=== PATIENT | male | born 2000 | race African-American/Black ===

== ENCOUNTER 2022-03-25 07:56 | Inpatient (IN) | payer SELFPAY ==
[2022-03-25] MEDS ORDERED: Piperacillin/Tazobactam 3.375 GM VIAL ONE (08:01)
[2022-03-25] MEDS ORDERED: FENTANYL 50 MCG/ML 1 ML VIAL ONE ×2 (08:02→13:10)
[2022-03-25] MEDS ORDERED: fentaNYL PF 100 MCG/2 ML SYRINGE ONE (08:19)
[2022-03-25] MEDS ORDERED: SUGAMMADEX SODIUM 200 MG/2 ML VIAL ONE (08:19)
[2022-03-25] MEDS ORDERED: Famotidine/PF 20 mg/2ml Vial ONE (08:19)
[2022-03-25] MEDS ORDERED: Ondansetron PF 4 MG/2 ML Vial ONE (08:22)
[2022-03-25] MEDS ORDERED: PROPOFOL 200 MG/20 ML VIAL ONE (08:22)
[2022-03-25] MEDS ORDERED: Rocuronium Bromide 10 MG/ML (10ML VIAL) ONE (08:22)
[2022-03-25] MEDS ORDERED: Succinylcholine 200 MG/10 ml SYRINGE FS ONE (08:22)
[2022-03-25] MEDS ORDERED: Phenylephrine 10 MG/ML VIAL ONE (08:22)
[2022-03-25] MEDS ORDERED: Dexamethasone 20 MG/5 ML VIAL ONE (08:22)
[2022-03-25] MEDS ORDERED: Ketorolac Tromethamine 30 MG/ML VIAL ONE (08:22)
[2022-03-25 08:23] LABS: Bacteria/HPF None Seen HPF (None Seen); Bilirubin Negative (Negative); Blood, Urine 3+ (Negative); Clarity Clear (Clear); Glucose, Urine (Dipstick) 150 mg/dL (Negative); Ketone, Urine Negative (Negative); Leukocyte 25 Leu/uL (Negative); Nitrite Negative (Negative); Protein, Urine (Dipstick) 30 mg/dL (Neg-Trace); RBC/HPF Greater than 50 HPF (0-3); Specific Gravity, Urine 1.048 (1.002-1.036); Squamous Epithelial None Seen HPF (0-3); Urobilinogen Normal mg/dL (Less than 2); WBC/HPF 0-3 HPF (0-3); pH, Urine 5.5 (5.0-9.0)
[2022-03-25 08:26] LABS: Hemoglobin 14.2 g/dL (14.0-18.0); Mean Corpuscular Hemoglobin 33.2 pg (27.0-31.0); Mean Corpuscular Volume 94.8 fl (78.0-98.0); Mean Platelet Volume 8.9 fL (7.4-10.4); Platelet Count 148 10x3/uL (130-400); Red Blood Cell (RBC) Count 4.28 mill/uL (4.70-6.10); White Blood Cell (WBC) Count 23.6 10x3/uL (4.8-10.8)
[2022-03-25 08:29] LABS: Amphetamine Not Detected (NotDetected); Barbiturates Screen Not Detected (NotDetected); Benzodiazepine Screen Not Detected (NotDetected); Cocaine Metabolite Screen Not Detected (NotDetected); Methadone Not Detected (NotDetected); Methamphetamine Not Detected (NotDetected); Opiate Screen Detected (NotDetected); Oxycodone Screen Not Detected (NotDetected); Phencyclidine (PCP) Not Detected (NotDetected); THC/Cannabinoid Screen Detected (NotDetected); Tricyclic Screen Not Detected (NotDetected)
[2022-03-25 08:38] LABS: Alcohol Less than 10 mg/dL (Less than 10); Lipase 13 U/L (8-78)
[2022-03-25 08:40] LABS: Acetaminophen Less than 10.0 mcg/mL (10.0-30.0); Alcohol Less than 10 mg/dL (Less than 10); Salicylate Less than 8.0 mg/dL (15.0-30.0)
[2022-03-25 08:43] LABS: INR-International Normal Ratio 1.3; Prothrombin Time 17.2 sec (12.0-14.7)
[2022-03-25 08:52] LABS: Band 7 % (5-11); Lymphocytes 12 % (21-51); MDiff Complete? YES; Monocytes 8 % (0-10); Neutrophil 73 % (42-75); Platelet Morphology Comment Appears Adequate; RBC Morphology Normal
[2022-03-25] MEDS ORDERED: Propofol 500 MG/50 ML VIAL ONE (10:15)
[2022-03-25] MEDS ORDERED: Iopamidol 370 76% 100 ML VIAL ONE (11:18)
[2022-03-25] MEDS ORDERED: Meperidine HCl/PF 25 MG/ML VIAL ONE (11:30)
[2022-03-25] MEDS ORDERED: PACU-Morphine 4MG/ML VIAL SLOW IVP PRN (11:37)
[2022-03-25] MEDS ORDERED: Promethazine HCl 25 MG/ML VIAL IVPB PRN (11:37)
[2022-03-25] MEDS ORDERED: Ondansetron HCl/PF 4 MG/2 ML Vial IVP PRN (11:37)
[2022-03-25] MEDS ORDERED: Promethazine HCl 25 MG/ML VIAL IM PRN ×2 (11:37→13:05)
[2022-03-25] MEDS ORDERED: Lidocaine 1% (PF) 30 ML VIAL ONE (11:41)
[2022-03-25] MEDS ORDERED: Fentanyl 100 MCG/2 ML VIAL ONE (12:05)
[2022-03-25] MEDS ORDERED: Midazolam HCl 2 mg/2 ml Vial ONE (12:05)
[2022-03-25 12:31] LABS: Lactic Acid 5.1 mmol/L (0.5-2.2)
[2022-03-25] MEDS ORDERED: hydrALAZINE 20 MG/ML VIAL SLOW IVP PRN (13:00)
[2022-03-25] MEDS ORDERED: TETANUS, DIPHTHERIA TOX,ADULT (TDVAX) 0.5 ML VIAL IM ONE (13:00)
[2022-03-25] MEDS ORDERED: Dextrose 5% in Water 1,000 ML IV PRN (13:00)
[2022-03-25] MEDS ORDERED: Insulin Regular 300 UNITS/3 ML VIAL SC PRN (13:00)
[2022-03-25] MEDS ORDERED: Dextrose 50% Abboject 50 ML SYRINGE SLOW IVP PRN (13:00)
[2022-03-25] MEDS ORDERED: Naloxone HCl 0.4 mg/ml Vial IV PRN (13:05)
[2022-03-25] MEDS ORDERED: diphenhydrAMINE 25 MG CAP PO PRN (13:05)
[2022-03-25] MEDS ORDERED: diphenhydrAMINE 50 MG/ML VIAL IM PRN (13:05)
[2022-03-25] MEDS ORDERED: diphenhydrAMINE 50 MG/ML VIAL IVP PRN (13:05)
[2022-03-25] MEDS ORDERED: Communication Order-Pharmacy FS SCH (13:15)
[2022-03-25 14:19] LABS: Hemoglobin 14.8 g/dL (14.0-18.0); Mean Corpuscular HGB CONC 33.6 g/dL (32.0-36.0); Mean Corpuscular Hemoglobin 31.6 pg (27.0-31.0); Mean Corpuscular Volume 94.1 fl (78.0-98.0); Mean Platelet Volume 8.4 fL (7.4-10.4); Platelet Count 131 10x3/uL (130-400); RBC Distribution Width 13.8 % (11.5-14.5); Red Blood Cell (RBC) Count 4.69 mill/uL (4.70-6.10); White Blood Cell (WBC) Count 19.9 10x3/uL (4.8-10.8)
[2022-03-25 14:29] LABS: INR-International Normal Ratio 1.5; PTT 33.4 sec (22.9-36.1); Prothrombin Time 18.6 sec (12.0-14.7)
[2022-03-25 14:40] LABS: Phosphorus 4.3 mg/dL (2.3-4.7)
[2022-03-25 14:45] LABS: ALT (SGPT) 20 U/L (8-55); AST (SGOT) 28 U/L (5-34); Albumin 2.8 g/dL (3.5-5.0); Alkaline Phosphatase 39 U/L (40-110); Anion Gap 18 mmol/L (10-20); BUN (Urea Nitrogen) 8 mg/dL (8.9-20.6); Bilirubin, Total 1.5 mg/dL (0.2-1.2); Calc. Creatinine Clearance 0 mL/min (70-130); Calcium 7.3 mg/dL (7.8-10.44); Carbon Dioxide 15 mmol/L (22-29); Chloride 111 mmol/L (98-107); Estimated GFR 96; Globulin 1.9 g/dL (2.4-3.5); Glucose 228 mg/dL (70-105); Magnesium 1.5 mg/dL (1.6-2.6); Potassium 3.8 mmol/L (3.5-5.1); Protein, Total 4.7 g/dL (6.0-8.3); Sodium 140 mmol/L (136-145)
[2022-03-25 15:03] LABS: Band 42 % (5-11); Lymphocytes 2 % (21-51); MDiff Complete? YES; Metamyelocyte 3 % (0-0); Monocytes 10 % (0-10); Neutrophil 43 % (42-75); Platelet Morphology Comment Appears Adequate; RBC Morphology Normal; Vacuoles SLIGHT
[2022-03-25] MEDS ORDERED: Potassium Chloride 20 MEQ in Premix Bag 1 BAG IVPB SCH (15:45)
[2022-03-25] MEDS ORDERED: Magnesium Sulfate In Water 4 GM in Premix Bag 1 BAG IVPB SCH (15:45)
[2022-03-25] MEDS ORDERED: Magnesium 2 GM/50 ML(in water) 4 GM in Premix Bag 1 BAG IVPB SCH (15:45)
[2022-03-25 17:00] VITALS: BMI 21.7
[2022-03-25] MEDS: Sodium Chloride 0.9% 1,000 ML IV SCH ×2 (17:29→22:46)
[2022-03-25 18:14] LABS: Lactic Acid 3.6 mmol/L (0.5-2.2)
[2022-03-25] MEDS: Piperacillin/Tazobactam 3.375 GM in Sodium Chloride 0.9% 100 ML IVPB SCH ×2 (18:24→23:37)
[2022-03-25] MEDS: Ondansetron PF 4 MG/2 ML Vial IVP PRN (18:24)
[2022-03-25] MEDS ORDERED: Lactated Ringer's 1,000 ML IV SCH (18:30)
[2022-03-25 19:49] LABS: #Lymphocytes 0.5 thou/uL (1.20-3.40); #Monocytes 1.8 thou/uL (0.11-0.59); #Neutrophils 11.9 thou/uL (1.40-6.50); %Basophils 0.1 % (0.0-1.0); %Eosinophils 0.1 % (0.0-10.0); %Lymphocytes 3.2 % (21.0-51.0); %Monocytes 12.7 % (0.0-10.0); %Neutrophils 83.9 % (42.0-75.0); Hemoglobin 14.4 g/dL (14.0-18.0); Mean Corpuscular HGB CONC 33.7 g/dL (32.0-36.0); Mean Corpuscular Hemoglobin 31.3 pg (27.0-31.0); Mean Corpuscular Volume 92.7 fl (78.0-98.0); Mean Platelet Volume 8.1 fL (7.4-10.4); Platelet Count 125 10x3/uL (130-400); RBC Distribution Width 14.2 % (11.5-14.5); Red Blood Cell (RBC) Count 4.59 mill/uL (4.70-6.10); White Blood Cell (WBC) Count 14.2 10x3/uL (4.8-10.8)
[2022-03-25 20:00] LABS: INR-International Normal Ratio 1.3; PTT 27.5 sec (22.9-36.1); Prothrombin Time 16.5 sec (12.0-14.7)
[2022-03-25 20:08] LABS: Lactic Acid 4.2 mmol/L (0.5-2.2)
[2022-03-25 20:22] LABS: Anion Gap 15 mmol/L (10-20); BUN (Urea Nitrogen) 10 mg/dL (8.9-20.6); Calc. Creatinine Clearance 95 mL/min (70-130); Calcium 7.8 mg/dL (7.8-10.44); Carbon Dioxide 16 mmol/L (22-29); Chloride 113 mmol/L (98-107); Estimated GFR 84; Glucose 168 mg/dL (70-105); Potassium 5.5 mmol/L (3.5-5.1); Sodium 138 mmol/L (136-145)
[2022-03-25] MEDS: Famotidine/PF 20 mg/2ml Vial SLOW IVP SCH (20:44)
[2022-03-25 22:57] LABS: #Lymphocytes 0.4 thou/uL (1.20-3.40); #Monocytes 1.7 thou/uL (0.11-0.59); #Neutrophils 10.2 thou/uL (1.40-6.50); %Eosinophils 0.1 % (0.0-10.0); %Lymphocytes 3.5 % (21.0-51.0); %Neutrophils 82.4 % (42.0-75.0); Hemoglobin 13.7 g/dL (14.0-18.0); Mean Corpuscular Hemoglobin 31.4 pg (27.0-31.0); Mean Corpuscular Volume 92.2 fl (78.0-98.0); Mean Platelet Volume 8.3 fL (7.4-10.4); Platelet Count 120 10x3/uL (130-400); RBC Distribution Width 14.1 % (11.5-14.5); Red Blood Cell (RBC) Count 4.37 mill/uL (4.70-6.10); White Blood Cell (WBC) Count 12.4 10x3/uL (4.8-10.8)
[2022-03-26] MEDS ORDERED: Sodium Chloride 0.9% 1,000 ML IV SCH (01:15)
[2022-03-26] MEDS: Ondansetron PF 4 MG/2 ML Vial IVP PRN ×2 (03:21→19:57)
[2022-03-26] MEDS: Sodium Chloride 0.9% 1,000 ML IV SCH ×3 (03:48→14:08)
[2022-03-26 04:36] LABS: Lactic Acid 2.4 mmol/L (0.5-2.2)
[2022-03-26 04:38] LABS: INR-International Normal Ratio 1.4; PTT 32.8 sec (22.9-36.1); Prothrombin Time 18.2 sec (12.0-14.7)
[2022-03-26] MEDS ORDERED: Dextrose 50% Abboject 50 ML SYRINGE SLOW IVP SCH (04:45)
[2022-03-26] MEDS ORDERED: Insulin Regular 300 UNITS/3 ML VIAL IVP SCH (04:45)
[2022-03-26 04:52] LABS: Anion Gap 12 mmol/L (10-20); BUN (Urea Nitrogen) 14 mg/dL (8.9-20.6); Calc. Creatinine Clearance 80 mL/min (70-130); Calcium 7.9 mg/dL (7.8-10.44); Carbon Dioxide 21 mmol/L (22-29); Chloride 112 mmol/L (98-107); Estimated GFR 68; Glucose 115 mg/dL (70-105); Magnesium 2.3 mg/dL (1.6-2.6); Phosphorus 2.9 mg/dL (2.3-4.7); Potassium 5.3 mmol/L (3.5-5.1); Sodium 140 mmol/L (136-145)
[2022-03-26] MEDS ORDERED: Calcium Chloride 13.6 MEQ in Sodium Chloride 0.9% 100 ML IVPB SCH ×2 (05:00→08:00)
[2022-03-26 05:14] LABS: Band 23 % (5-11); Lymphocytes 4 % (21-51); MDiff Complete? YES; Mean Corpuscular HGB CONC 33.3 g/dL (32.0-36.0); Mean Corpuscular Hemoglobin 31.1 pg (27.0-31.0); Mean Corpuscular Volume 93.5 fl (78.0-98.0); Mean Platelet Volume 7.9 fL (7.4-10.4); Monocytes 15 % (0-10); Neutrophil 58 % (42-75); Platelet Count 112 10x3/uL (130-400); Platelet Morphology Comment Appears Decreased; RBC Distribution Width 13.7 % (11.5-14.5); Red Blood Cell (RBC) Count 3.52 mill/uL (4.70-6.10); White Blood Cell (WBC) Count 10.1 10x3/uL (4.8-10.8)
[2022-03-26] MEDS: Piperacillin/Tazobactam 3.375 GM in Sodium Chloride 0.9% 100 ML IVPB SCH ×3 (05:39→21:26)
[2022-03-26] MEDS: Famotidine/PF 20 mg/2ml Vial SLOW IVP SCH ×2 (08:27→19:57)
[2022-03-26 08:52] LABS: SARS-CoV-2 NAA Rapid Test Not Detected (NotDetected)
[2022-03-26 10:18] LABS: #Lymphocytes 0.7 thou/uL (1.20-3.40); #Monocytes 1.5 thou/uL (0.11-0.59); #Neutrophils 8.3 thou/uL (1.40-6.50); %Basophils 0.2 % (0.0-1.0); %Eosinophils 0.2 % (0.0-10.0); %Lymphocytes 6.2 % (21.0-51.0); %Monocytes 14.1 % (0.0-10.0); %Neutrophils 79.4 % (42.0-75.0); Hemoglobin 10.7 g/dL (14.0-18.0); Mean Corpuscular HGB CONC 33.7 g/dL (32.0-36.0); Mean Corpuscular Hemoglobin 31.8 pg (27.0-31.0); Mean Corpuscular Volume 94.3 fl (78.0-98.0); Mean Platelet Volume 8.1 fL (7.4-10.4); Platelet Count 99 10x3/uL (130-400); RBC Distribution Width 13.7 % (11.5-14.5); Red Blood Cell (RBC) Count 3.36 mill/uL (4.70-6.10); White Blood Cell (WBC) Count 10.5 10x3/uL (4.8-10.8)
[2022-03-26] MEDS ORDERED: Sodium Phosphate 15 MMOL in Sodium Chloride 0.9% 250 ML 250 ML IVPB SCH (12:00)
[2022-03-26 17:27] LABS: Magnesium 1.9 mg/dL (1.6-2.6); Phosphorus 3.2 mg/dL (2.3-4.7)
[2022-03-27] MEDS: Sodium Chloride 0.9% 1,000 ML IV SCH ×3 (00:55→16:16)
[2022-03-27] MEDS: Piperacillin/Tazobactam 3.375 GM in Sodium Chloride 0.9% 100 ML IVPB SCH ×3 (04:59→21:59)
[2022-03-27] MEDS: Famotidine/PF 20 mg/2ml Vial SLOW IVP SCH ×2 (09:08→21:58)
[2022-03-27 11:07] LABS: #Lymphocytes 0.6 thou/uL (1.20-3.40); #Monocytes 1.1 thou/uL (0.11-0.59); #Neutrophils 8.3 thou/uL (1.40-6.50); %Eosinophils 0.2 % (0.0-10.0); %Lymphocytes 5.5 % (21.0-51.0); %Monocytes 10.6 % (0.0-10.0); %Neutrophils 83.7 % (42.0-75.0); Hemoglobin 9.2 g/dL (14.0-18.0); Mean Corpuscular HGB CONC 34.8 g/dL (32.0-36.0); Mean Corpuscular Hemoglobin 32.3 pg (27.0-31.0); Mean Corpuscular Volume 92.8 fl (78.0-98.0); Mean Platelet Volume 7.7 fL (7.4-10.4); Platelet Count 115 10x3/uL (130-400); RBC Distribution Width 13.4 % (11.5-14.5); Red Blood Cell (RBC) Count 2.84 mill/uL (4.70-6.10); White Blood Cell (WBC) Count 9.9 10x3/uL (4.8-10.8)
[2022-03-27 11:25] LABS: ALT (SGPT) 22 U/L (8-55); AST (SGOT) 50 U/L (5-34); Albumin 2.9 g/dL (3.5-5.0); Alkaline Phosphatase 39 U/L (40-110); Anion Gap 10 mmol/L (10-20); BUN (Urea Nitrogen) 13 mg/dL (8.9-20.6); Bilirubin, Total 1.9 mg/dL (0.2-1.2); Calc. Creatinine Clearance 103 mL/min (70-130); Calcium 8.6 mg/dL (7.8-10.44); Carbon Dioxide 25 mmol/L (22-29); Chloride 110 mmol/L (98-107); Estimated GFR 91; Globulin 2.4 g/dL (2.4-3.5); Glucose 92 mg/dL (70-105); Potassium 4.4 mmol/L (3.5-5.1); Protein, Total 5.3 g/dL (6.0-8.3); Sodium 141 mmol/L (136-145)
[2022-03-27] MEDS: Ondansetron PF 4 MG/2 ML Vial IVP PRN (16:13)
[2022-03-27] MEDS: Enoxaparin Sodium 40 MG/0.4 ML SYRINGE SC SCH (21:59)
[2022-03-28] MEDS: Sodium Chloride 0.9% 1,000 ML IV SCH ×2 (00:30→08:03)
[2022-03-28] MEDS: HYDROmorphone 10 mg/100 ml CADD IVPB PRN (02:53)
[2022-03-28] MEDS: Piperacillin/Tazobactam 3.375 GM in Sodium Chloride 0.9% 100 ML IVPB SCH ×3 (06:04→20:51)
[2022-03-28 07:06] LABS: #Lymphocytes 1.1 thou/uL (1.20-3.40); #Monocytes 0.9 thou/uL (0.11-0.59); #Neutrophils 7.3 thou/uL (1.40-6.50); %Eosinophils 0.4 % (0.0-10.0); %Lymphocytes 11.4 % (21.0-51.0); %Monocytes 9.8 % (0.0-10.0); %Neutrophils 78.4 % (42.0-75.0); Hemoglobin 9.1 g/dL (14.0-18.0); Mean Corpuscular HGB CONC 35.5 g/dL (32.0-36.0); Mean Corpuscular Hemoglobin 33.1 pg (27.0-31.0); Mean Corpuscular Volume 93.4 fl (78.0-98.0); Mean Platelet Volume 7.5 fL (7.4-10.4); Platelet Count 127 10x3/uL (130-400); RBC Distribution Width 13.3 % (11.5-14.5); Red Blood Cell (RBC) Count 2.75 mill/uL (4.70-6.10); White Blood Cell (WBC) Count 9.3 10x3/uL (4.8-10.8)
[2022-03-28 07:16] LABS: Anion Gap 10 mmol/L (10-20); BUN (Urea Nitrogen) 10 mg/dL (8.9-20.6); Calc. Creatinine Clearance 140 mL/min (70-130); Calcium 8.4 mg/dL (7.8-10.44); Carbon Dioxide 25 mmol/L (22-29); Chloride 108 mmol/L (98-107); Estimated GFR 126; Glucose 78 mg/dL (70-105); Magnesium 1.7 mg/dL (1.6-2.6); Phosphorus 2.7 mg/dL (2.3-4.7); Potassium 3.8 mmol/L (3.5-5.1); Sodium 139 mmol/L (136-145)
[2022-03-28] MEDS: Famotidine/PF 20 mg/2ml Vial SLOW IVP SCH ×2 (08:03→20:51)
[2022-03-28] MEDS ORDERED: Magnesium 2 GM/50 ML(in water) 2 GM in Premix Bag 1 BAG IVPB SCH (08:15)
[2022-03-28] MEDS ORDERED: Potassium Phosphate 30 MMOL, Magnesium Sulfate 2 GM in Sodium Chloride 0.9% 250 ML 250 ML IVPB SCH (09:00)
[2022-03-28] MEDS ORDERED: Iopamidol 370 76% 100 ML VIAL ONE (09:18)
[2022-03-28] MEDS: Enoxaparin Sodium 40 MG/0.4 ML SYRINGE SC SCH (20:51)
[2022-03-29] MEDS: Sodium Chloride 0.9% 1,000 ML IV SCH ×2 (01:05→15:22)
[2022-03-29 05:54] LABS: #Eosinphils 0.1 thou/uL (0.0-0.7); #Lymphocytes 1.2 thou/uL (1.20-3.40); #Monocytes 0.9 thou/uL (0.11-0.59); #Neutrophils 6.6 thou/uL (1.40-6.50); %Eosinophils 1.2 % (0.0-10.0); %Lymphocytes 13.9 % (21.0-51.0); %Monocytes 9.8 % (0.0-10.0); Hemoglobin 8.3 g/dL (14.0-18.0); Mean Corpuscular HGB CONC 33.7 g/dL (32.0-36.0); Mean Corpuscular Hemoglobin 31.3 pg (27.0-31.0); Mean Corpuscular Volume 92.8 fl (78.0-98.0); Platelet Count 140 10x3/uL (130-400); RBC Distribution Width 13.5 % (11.5-14.5); Red Blood Cell (RBC) Count 2.64 mill/uL (4.70-6.10); White Blood Cell (WBC) Count 8.8 10x3/uL (4.8-10.8)
[2022-03-29 06:16] LABS: ALT (SGPT) 20 U/L (8-55); AST (SGOT) 31 U/L (5-34); Albumin 2.9 g/dL (3.5-5.0); Alkaline Phosphatase 36 U/L (40-110); Anion Gap 11 mmol/L (10-20); BUN (Urea Nitrogen) 9 mg/dL (8.9-20.6); Bilirubin, Total 1.7 mg/dL (0.2-1.2); Calc. Creatinine Clearance 137 mL/min (70-130); Calcium 8.2 mg/dL (7.8-10.44); Carbon Dioxide 24 mmol/L (22-29); Chloride 105 mmol/L (98-107); Estimated GFR 125; Globulin 2.3 g/dL (2.4-3.5); Glucose 74 mg/dL (70-105); Magnesium 1.8 mg/dL (1.6-2.6); Phosphorus 2.8 mg/dL (2.3-4.7); Potassium 3.7 mmol/L (3.5-5.1); Protein, Total 5.2 g/dL (6.0-8.3); Sodium 136 mmol/L (136-145)
[2022-03-29] MEDS: Piperacillin/Tazobactam 3.375 GM in Sodium Chloride 0.9% 100 ML IVPB SCH ×3 (06:18→22:22)
[2022-03-29] MEDS: Famotidine/PF 20 mg/2ml Vial SLOW IVP SCH ×2 (09:06→20:29)
[2022-03-29] MEDS ORDERED: fentaNYL PF 100 MCG/2 ML SYRINGE ONE (10:54)
[2022-03-29] MEDS ORDERED: Ondansetron HCl/PF 4 MG/2 ML Vial IVP PRN (11:14)
[2022-03-29] MEDS ORDERED: Promethazine HCl 25 MG/ML VIAL IM PRN (11:14)
[2022-03-29] MEDS ORDERED: Promethazine HCl 25 MG/ML VIAL IVPB PRN (11:14)
[2022-03-29] MEDS ORDERED: Iopamidol 15 ML ONE ×2 (11:34→13:37)
[2022-03-29] MEDS ORDERED: PROPOFOL 200 MG/20 ML VIAL ONE (12:48)
[2022-03-29] MEDS ORDERED: Ondansetron PF 4 MG/2 ML Vial ONE (12:48)
[2022-03-29] MEDS ORDERED: Dexamethasone 20 MG/5 ML VIAL ONE (12:48)
[2022-03-29] MEDS: Senokot S 8.6-50 MG TAB PO SCH (20:29)
[2022-03-30] MEDS: Piperacillin/Tazobactam 3.375 GM in Sodium Chloride 0.9% 100 ML IVPB SCH ×2 (05:36→15:15)
[2022-03-30] MEDS: HYDROmorphone 10 mg/100 ml CADD IVPB PRN (05:37)
[2022-03-30 05:40] LABS: #Lymphocytes 0.6 thou/uL (1.20-3.40); #Monocytes 1.3 thou/uL (0.11-0.59); #Neutrophils 7.8 thou/uL (1.40-6.50); %Eosinophils 0.1 % (0.0-10.0); %Lymphocytes 6.5 % (21.0-51.0); %Monocytes 13.3 % (0.0-10.0); Hemoglobin 8.1 g/dL (14.0-18.0); Mean Corpuscular HGB CONC 33.9 g/dL (32.0-36.0); Mean Corpuscular Hemoglobin 31.3 pg (27.0-31.0); Mean Corpuscular Volume 92.3 fl (78.0-98.0); Mean Platelet Volume 6.6 fL (7.4-10.4); Platelet Count 148 10x3/uL (130-400); RBC Distribution Width 14.4 % (11.5-14.5); Red Blood Cell (RBC) Count 2.58 mill/uL (4.70-6.10); White Blood Cell (WBC) Count 9.8 10x3/uL (4.8-10.8)
[2022-03-30 05:56] LABS: Anion Gap 11 mmol/L (10-20); BUN (Urea Nitrogen) 9 mg/dL (8.9-20.6); Calc. Creatinine Clearance 137 mL/min (70-130); Calcium 8.5 mg/dL (7.8-10.44); Carbon Dioxide 24 mmol/L (22-29); Chloride 106 mmol/L (98-107); Estimated GFR 125; Glucose 104 mg/dL (70-105); Magnesium 1.7 mg/dL (1.6-2.6); Phosphorus 3.3 mg/dL (2.3-4.7); Sodium 137 mmol/L (136-145)
[2022-03-30] MEDS ORDERED: FENTANYL 50 MCG/ML 1 ML VIAL ONE (09:28)
[2022-03-30] MEDS ORDERED: Sodium Bicarbonate 2.5 MEQ/5 ML VIAL ONE (09:58)
[2022-03-30] MEDS ORDERED: Lidocaine 2% PF 5 ML VIAL ONE (09:58)
[2022-03-30] MEDS: Polyethylene Glycol 3350 17 GM Packet PO SCH (11:27)
[2022-03-30] MEDS: Senokot S 8.6-50 MG TAB PO SCH ×2 (11:27→20:24)
[2022-03-30] MEDS: Famotidine/PF 20 mg/2ml Vial SLOW IVP SCH ×2 (12:14→20:24)
[2022-03-31] MEDS: Polyethylene Glycol 3350 17 GM Packet PO SCH (08:05)
[2022-03-31] MEDS: Senokot S 8.6-50 MG TAB PO SCH (08:05)
[2022-03-31] MEDS: Famotidine/PF 20 mg/2ml Vial SLOW IVP SCH (08:05)
[2022-03-31 08:13] VITALS: TEMP 98.2
[2022-03-31] MEDS ORDERED: Enoxaparin Sodium 40 MG/0.4 ML SYRINGE SC SCH (09:00)
[2022-03-31] MEDS ORDERED: Sodium Chloride 0.9% 1,000 ML IV SCH (11:00)
[2022-03-31 12:05] VITALS: BP 125/71
== END 2022-03-31 12:50 | disposition short-term general hospital (02) | DRG 957 ==
LOC: ERS 07:56 → SDC 08:14 → SURG A 13:16 → EEVIPCON 13:16
PROVIDERS: ADMIT Surgery; ATTEND Surgery
PROC: 0DB80ZZ Excision of Small Intestine, Open Approach (ICD-10-PCS; principal; 2022-03-25)
PROC: 04LF3DZ Occlusion of Left Internal Iliac Artery with Intraluminal Device, Percutaneous Approach (ICD-10-PCS; 2022-03-25)
PROC: 0DBN0ZZ Excision of Sigmoid Colon, Open Approach (ICD-10-PCS; 2022-03-25)
PROC: B4101ZZ Fluoroscopy of Abdominal Aorta using Low Osmolar Contrast (ICD-10-PCS; 2022-03-25)
PROC: B41G1ZZ Fluoroscopy of Left Lower Extremity Arteries using Low Osmolar Contrast (ICD-10-PCS; 2022-03-25)
PROC: 30233M1 Transfusion of Nonautologous Plasma Cryoprecipitate into Peripheral Vein, Percutaneous Approach (ICD-10-PCS; 2022-03-25)
PROC: 30233N1 Transfusion of Nonautologous Red Blood Cells into Peripheral Vein, Percutaneous Approach (ICD-10-PCS; 2022-03-25)
PROC: 0TJB8ZZ Inspection of Bladder, Via Natural or Artificial Opening Endoscopic (ICD-10-PCS; 2022-03-29)
PROC: BT1F1ZZ Fluoroscopy of Left Kidney, Ureter and Bladder using Low Osmolar Contrast (ICD-10-PCS; 2022-03-30)
DX: S36.498A Other injury of other part of small intestine, initial encounter (principal); Z20.822 Contact with and (suspected) exposure to COVID-19; K65.8 Other peritonitis; S37.29XA Other injury of bladder, initial encounter; S35.512A Injury of left iliac artery, initial encounter; S36.892A Contusion of other intra-abdominal organs, initial encounter; S36.593A Other injury of sigmoid colon, initial encounter; R18.8 Other ascites; N17.9 Acute kidney failure, unspecified; M62.82 Rhabdomyolysis; S31.134A Puncture wound of abdominal wall without foreign body, left lower quadrant without penetration into peritoneal cavity, initial encounter; S31.030A Puncture wound without foreign body of lower back and pelvis without penetration into retroperitoneum, initial encounter; X95.9XXA Assault by unspecified firearm discharge, initial encounter
CPT/HCPCS: 36246; 36415; 36416; 36430; 37244; 50433; 51702; 72191; 74178; 74410; 74420; 75726; 80048; 80053; 80306; 80307; 81003; 81015; 82570; 83605; 83690; 83735; 84100; 85025; 85384; 85610; 85730; 86850; 86900; 86901; 88307; 96374; 96375; A4649; C1713; C1760; C1769; C1776; C1894; G0390; J1100; J1650; J1815; J1885; J2001; J2175; J2250; J2370; J2405; J2543; J2704; J3010; J3475; J3480; J3490; J7050; P9012; P9016; Q9967; S0028; U0002

== ENCOUNTER 2022-04-10 14:12 | Inpatient (IN) | payer OTHER, BC ==
[~2022-04-10 14:12] MED LIST: Iopamidol-370 76% 500 ML 1 ML ONE
[2022-04-10 15:46] LABS: #Eosinphils 0.1 thou/uL (0.0-0.7); #Lymphocytes 0.7 thou/uL (1.20-3.40); #Monocytes 2.1 thou/uL (0.11-0.59); #Neutrophils 13.8 thou/uL (1.40-6.50); %Basophils 0.1 % (0.0-1.0); %Eosinophils 0.5 % (0.0-10.0); %Lymphocytes 4.4 % (21.0-51.0); %Monocytes 12.6 % (0.0-10.0); %Neutrophils 82.4 % (42.0-75.0); Mean Corpuscular HGB CONC 32.6 g/dL (32.0-36.0); Mean Corpuscular Hemoglobin 30.7 pg (27.0-31.0); Mean Corpuscular Volume 94.4 fl (78.0-98.0); Platelet Count 464 10x3/uL (130-400); RBC Distribution Width 14.6 % (11.5-14.5); Red Blood Cell (RBC) Count 3.89 mill/uL (4.70-6.10); White Blood Cell (WBC) Count 16.8 10x3/uL (4.8-10.8)
[2022-04-10 16:08] LABS: ALT (SGPT) 27 U/L (8-55); AST (SGOT) 21 U/L (5-34); Albumin 3.6 g/dL (3.5-5.0); Alkaline Phosphatase 66 U/L (40-110); Anion Gap 16 mmol/L (10-20); BUN (Urea Nitrogen) 7 mg/dL (8.9-20.6); Bilirubin, Total 1.3 mg/dL (0.2-1.2); Calc. Creatinine Clearance 0 mL/min (70-130); Calcium 9.1 mg/dL (7.8-10.44); Carbon Dioxide 23 mmol/L (22-29); Chloride 103 mmol/L (98-107); Estimated GFR 127; Glucose 85 mg/dL (70-105); Magnesium 1.8 mg/dL (1.6-2.6); Potassium 4.5 mmol/L (3.5-5.1); Protein, Total 6.6 g/dL (6.0-8.3); Sodium 137 mmol/L (136-145)
[2022-04-10 16:17] LABS: Bilirubin Negative (Negative); Blood, Urine Negative (Negative); Clarity Clear (Clear); Glucose, Urine (Dipstick) Normal (Negative); Ketone, Urine Negative (Negative); Leukocyte 25 Leu/uL (Negative); Nitrite Negative (Negative); Protein, Urine (Dipstick) 20 mg/dL (Neg-Trace); Specific Gravity, Urine 1.026 (1.002-1.036); Urobilinogen 3 mg/dL (Less than 2); pH, Urine 5.5 (5.0-9.0)
[2022-04-10 16:28] LABS: Amphetamine Not Detected (NotDetected); Barbiturates Screen Not Detected (NotDetected); Benzodiazepine Screen Not Detected (NotDetected); Cocaine Metabolite Screen Not Detected (NotDetected); Methadone Not Detected (NotDetected); Methamphetamine Not Detected (NotDetected); Opiate Screen Not Detected (NotDetected); Oxycodone Screen Not Detected (NotDetected); Phencyclidine (PCP) Not Detected (NotDetected); THC/Cannabinoid Screen Detected (NotDetected); Tricyclic Screen Not Detected (NotDetected)
[2022-04-10 16:37] LABS: CK (CPK) 180 U/L (30-200); Lipase 9 U/L (8-78)
[2022-04-10 16:39] LABS: Bacteria/HPF None Seen HPF (None Seen); RBC/HPF None Seen HPF (0-3); Squamous Epithelial 0-3 HPF (0-3)
[2022-04-10] MEDS ORDERED: Piperacillin/Tazobactam 3.375 GM VIAL ONE (18:21)
[2022-04-10] MEDS ORDERED: Ondansetron PF 4 MG/2 ML Vial IVP PRN (20:08)
[2022-04-10] MEDS ORDERED: Dextrose 5% in Water 1,000 ML IV PRN (20:08)
[2022-04-10] MEDS ORDERED: Ondansetron ODT 4 MG TAB PO PRN (20:08)
[2022-04-10] MEDS ORDERED: Morphine 4 MG/ML VIAL SLOW IVP PRN ×2 (20:08→20:21)
[2022-04-10] MEDS ORDERED: traMADol HCl 50 MG TAB PO PRN ×2 (20:08)
[2022-04-10] MEDS ORDERED: Dextrose 50% Abboject 50 ML SYRINGE SLOW IVP PRN (20:08)
[2022-04-10] MEDS ORDERED: hydrALAZINE 20 MG/ML VIAL SLOW IVP PRN (20:08)
[2022-04-10] MEDS ORDERED: Meropenem 1 GM in Sodium Chloride 0.9% 100 ML IVPB SCH (20:45)
[2022-04-10 21:20] VITALS: BMI 18.6
[2022-04-10] MEDS: Sodium Chloride 0.9% 1,000 ML IV SCH (21:34)
[2022-04-10] MEDS: Senokot S 8.6-50 MG TAB PO SCH (21:35)
[2022-04-10] MEDS: Famotidine/PF 20 mg/2ml Vial SLOW IVP SCH (21:35)
[2022-04-10] MEDS: Acetaminophen 325 MG TAB PO SCH (21:35)
[2022-04-10 22:26] LABS: SARS-CoV-2 NAA Rapid Test Not Detected (NotDetected)
[2022-04-10 23:35] LABS: Lactic Acid 1.3 mmol/L (0.5-2.2)
[2022-04-11] MEDS: Acetaminophen 325 MG TAB PO SCH ×2 (03:05→12:36)
[2022-04-11] MEDS: Sodium Chloride 0.9% 1,000 ML IV SCH (05:40)
[2022-04-11] MEDS ORDERED: Meropenem 1 GM in Sodium Chloride 0.9% 100 ML IVPB SCH (06:00)
[2022-04-11 06:48] LABS: Hemoglobin 10.1 g/dL (14.0-18.0); Mean Corpuscular HGB CONC 33.2 g/dL (32.0-36.0); Mean Corpuscular Hemoglobin 31.3 pg (27.0-31.0); Mean Corpuscular Volume 94.5 fl (78.0-98.0); Mean Platelet Volume 6.5 fL (7.4-10.4); Platelet Count 472 10x3/uL (130-400); RBC Distribution Width 14.2 % (11.5-14.5); Red Blood Cell (RBC) Count 3.22 mill/uL (4.70-6.10); White Blood Cell (WBC) Count 10.7 10x3/uL (4.8-10.8)
[2022-04-11 07:11] LABS: Anion Gap 9 mmol/L (10-20); BUN (Urea Nitrogen) 7 mg/dL (8.9-20.6); Calc. Creatinine Clearance 141 mL/min (70-130); Carbon Dioxide 27 mmol/L (22-29); Chloride 106 mmol/L (98-107); Estimated GFR 129; Glucose 90 mg/dL (70-105); Sodium 138 mmol/L (136-145)
[2022-04-11 08:36] LABS: Band 2 % (5-11); Eosinophils 2 % (0-10); Lymphocytes 12 % (21-51); MDiff Complete? YES; Monocytes 6 % (0-10); Neutrophil 78 % (42-75); Platelet Morphology Comment Appears Increased; Polychromasia SLIGHT = 2-3 cells (100X) (0-2/hpf)
[2022-04-11] MEDS ORDERED: Saccharomyces boulardii 250 MG CAP PO SCH (09:00)
[2022-04-11] MEDS ORDERED: Polyethylene Glycol 3350 17 GM Packet PO SCH (09:00)
[2022-04-11] MEDS ORDERED: Sodium Bicarbonate 2.5 MEQ/5 ML VIAL ONE (10:37)
[2022-04-11] MEDS ORDERED: FENTANYL 50 MCG/ML 1 ML VIAL ONE (10:38)
[2022-04-11] MEDS ORDERED: Midazolam HCl 2 mg/2 ml Vial ONE (10:39)
[2022-04-11] MEDS: Senokot S 8.6-50 MG TAB PO SCH (12:36)
[2022-04-11] MEDS: Famotidine/PF 20 mg/2ml Vial SLOW IVP SCH (12:36)
[2022-04-11 12:51] LABS: BF Color Brown; Body Fluid Source Abscess Fluid; Clarity Cloudy/Turbid (Clear); Tube # EDTA
[2022-04-11 16:17] VITALS: BP 126/84; TEMP 97
[2022-04-11] MEDS ORDERED: Amoxicillin/Potassium Clav 875 MG TAB PO SCH (21:00)
== END 2022-04-11 16:49 | disposition home or self-care (01) | DRG 373 ==
LOC: ERS 14:12 → SJJU 19:57
PROVIDERS: ADMIT Surgery; ATTEND Surgery
PROC: 0W9G3ZZ Drainage of Peritoneal Cavity, Percutaneous Approach (ICD-10-PCS; principal; 2022-04-11)
DX: K65.1 Peritoneal abscess (principal); Z20.822 Contact with and (suspected) exposure to COVID-19; R53.1 Weakness; Z98.890 Other specified postprocedural states; Z93.6 Other artificial openings of urinary tract status; Z90.49 Acquired absence of other specified parts of digestive tract
CPT/HCPCS: 36415; 49020; 74177; 77012; 80048; 80053; 80306; 81003; 81015; 82550; 82570; 83605; 83690; 83735; 84484; 85025; 85060; 87070; 87077; 87086; 87186; 87205; 89051; 93005; 96361; 96365; C1729; J2185; J2250; J2543; J3010; J3490; J7050; Q9967; S0028; U0002

== ENCOUNTER 2022-04-21 14:38 | Inpatient (IN) | payer BC, OTHER ==
[2022-04-21] MEDS ORDERED: Iopamidol-370 76% 500 ML 1 ML ONE (15:14)
[2022-04-21 15:51] LABS: #Eosinphils 0.1 thou/uL (0.0-0.7); #Lymphocytes 0.8 thou/uL (1.20-3.40); #Monocytes 1.4 thou/uL (0.11-0.59); #Neutrophils 9.5 thou/uL (1.40-6.50); %Basophils 0.3 % (0.0-1.0); %Eosinophils 0.8 % (0.0-10.0); %Lymphocytes 6.8 % (21.0-51.0); %Monocytes 12.1 % (0.0-10.0); %Neutrophils 80.1 % (42.0-75.0); Mean Corpuscular HGB CONC 33.4 g/dL (32.0-36.0); Mean Corpuscular Hemoglobin 29.7 pg (27.0-31.0); Mean Corpuscular Volume 88.9 fl (78.0-98.0); Mean Platelet Volume 6.6 fL (7.4-10.4); Platelet Count 315 10x3/uL (130-400); RBC Distribution Width 14.9 % (11.5-14.5); White Blood Cell (WBC) Count 11.9 10x3/uL (4.8-10.8)
[2022-04-21 16:12] LABS: ALT (SGPT) 33 U/L (8-55); AST (SGOT) 20 U/L (5-34); Albumin 3.4 g/dL (3.5-5.0); Alkaline Phosphatase 86 U/L (40-110); Anion Gap 10 mmol/L (10-20); BUN (Urea Nitrogen) 8 mg/dL (8.9-20.6); Calc. Creatinine Clearance 0 mL/min (70-130); Calcium 8.9 mg/dL (7.8-10.44); Carbon Dioxide 27 mmol/L (22-29); Chloride 103 mmol/L (98-107); Estimated GFR 128; Globulin 3.5 g/dL (2.4-3.5); Glucose 86 mg/dL (70-105); Potassium 4.2 mmol/L (3.5-5.1); Protein, Total 6.9 g/dL (6.0-8.3); Sodium 136 mmol/L (136-145)
[2022-04-21] MEDS ORDERED: cefTRIAXone\\ROCEPHIN 2 GM VIAL ONE (16:13)
[2022-04-21 16:25] LABS: Clarity Turbid (Clear); Leukocyte Moderate (Negative); Nitrite Positive (Negative); Protein, Urine (Dipstick) 300 mg/dL (Neg-Trace)
[2022-04-21 16:26] LABS: Bilirubin Small (Negative); Blood, Urine Large (Negative); Glucose, Urine (Dipstick) Negative (Negative); Ketone, Urine Trace mg/dL (Negative); Urobilinogen 0.2 mg/dL (Less than 2)
[2022-04-21 16:29] LABS: Bacteria/HPF 4+ HPF (None Seen); Squamous Epithelial 0-3 HPF (0-3); WBC/HPF Greater than 50 HPF (0-3)
[2022-04-21] MEDS ORDERED: VANCOMYCIN 1.25 GM/250 ML BAG 1.25 GM in Premix Bag 1 BAG IVPB SCH (16:30)
[2022-04-21] MEDS ORDERED: Meropenem 1 GM in Sodium Chloride 0.9% 100 ML IVPB SCH (17:00)
[2022-04-21] MEDS ORDERED: hydrALAZINE 20 MG/ML VIAL SLOW IVP PRN (17:54)
[2022-04-21] MEDS ORDERED: Dextrose 5% in Water 1,000 ML IV PRN (17:54)
[2022-04-21] MEDS ORDERED: Ondansetron ODT 4 MG TAB PO PRN (17:54)
[2022-04-21] MEDS ORDERED: Dextrose 50% Abboject 50 ML SYRINGE SLOW IVP PRN (17:54)
[2022-04-21] MEDS ORDERED: Ondansetron PF 4 MG/2 ML Vial IVP PRN (17:54)
[2022-04-21 18:17] LABS: SARS-CoV-2 NAA Rapid Test Not Detected (NotDetected)
[2022-04-21 19:32] VITALS: BMI 20.2
[2022-04-21] MEDS ORDERED: traMADol HCl 50 MG TAB PO PRN ×2 (20:16)
[2022-04-21] MEDS: traMADol HCl 50 MG TAB PO PRN (21:03)
[2022-04-21] MEDS ORDERED: Sodium Chloride 0.9% 1,000 ML IV SCH (23:55)
[2022-04-22] MEDS: Saccharomyces boulardii 250 MG CAP PO SCH (08:33)
[2022-04-22] MEDS: VANCOMYCIN 1.25 GM/250 ML BAG 1.25 GM in Premix Bag 1 BAG IVPB SCH ×2 (08:33→22:25)
[2022-04-22 09:55] LABS: #Eosinphils 0.2 thou/uL (0.0-0.7); #Lymphocytes 0.7 thou/uL (1.20-3.40); #Monocytes 1.6 thou/uL (0.11-0.59); #Neutrophils 9.8 thou/uL (1.40-6.50); %Basophils 0.1 % (0.0-1.0); %Eosinophils 1.3 % (0.0-10.0); %Lymphocytes 5.6 % (21.0-51.0); %Monocytes 12.7 % (0.0-10.0); %Neutrophils 80.2 % (42.0-75.0); Hemoglobin 10.3 g/dL (14.0-18.0); Mean Corpuscular HGB CONC 32.8 g/dL (32.0-36.0); Mean Corpuscular Hemoglobin 29.2 pg (27.0-31.0); Mean Corpuscular Volume 88.8 fl (78.0-98.0); Mean Platelet Volume 6.8 fL (7.4-10.4); Platelet Count 273 10x3/uL (130-400); RBC Distribution Width 14.8 % (11.5-14.5); Red Blood Cell (RBC) Count 3.52 mill/uL (4.70-6.10); White Blood Cell (WBC) Count 12.2 10x3/uL (4.8-10.8)
[2022-04-22 10:01] LABS: INR-International Normal Ratio 1.3; PTT 33.3 sec (22.9-36.1); Prothrombin Time 16.4 sec (12.0-14.7)
[2022-04-22] MEDS: Meropenem 1 GM in Sodium Chloride 0.9% 100 ML IVPB SCH ×3 (10:04→17:16)
[2022-04-22 10:22] LABS: Phosphorus 2.7 mg/dL (2.3-4.7)
[2022-04-22 10:25] LABS: Anion Gap 9 mmol/L (10-20); BUN (Urea Nitrogen) 6 mg/dL (8.9-20.6); Calc. Creatinine Clearance 148 mL/min (70-130); Calcium 8.8 mg/dL (7.8-10.44); Carbon Dioxide 26 mmol/L (22-29); Chloride 104 mmol/L (98-107); Estimated GFR 130; Glucose 89 mg/dL (70-105); Magnesium 1.5 mg/dL (1.6-2.6); Potassium 3.8 mmol/L (3.5-5.1); Sodium 135 mmol/L (136-145)
[2022-04-22] MEDS ORDERED: FENTANYL 50 MCG/ML 1 ML VIAL ONE (12:42)
[2022-04-22] MEDS ORDERED: Sodium Bicarbonate 2.5 MEQ/5 ML VIAL ONE (12:42)
[2022-04-22] MEDS ORDERED: Midazolam HCl 2 mg/2 ml Vial ONE (12:42)
[2022-04-22] MEDS: traMADol HCl 50 MG TAB PO PRN ×3 (12:47→22:25)
[2022-04-22 16:04] LABS: Body Fluid Source Abscess Fluid
[2022-04-22 16:05] LABS: BF Color Brown; Clarity Cloudy/Turbid (Clear); Tube # EDTA
[2022-04-22] MEDS ORDERED: Magnesium 2 GM/50 ML(in water) 3 GM in Premix Bag 1 BAG IVPB SCH (17:00)
[2022-04-22] MEDS ORDERED: Magnesium Sulfate 3 GM in Sodium Chloride 0.9% 100 ML IVPB SCH (17:00)
[2022-04-23] MEDS: Meropenem 1 GM in Sodium Chloride 0.9% 100 ML IVPB SCH ×2 (01:31→10:15)
[2022-04-23 06:08] LABS: #Eosinphils 0.3 thou/uL (0.0-0.7); #Lymphocytes 1.2 thou/uL (1.20-3.40); #Neutrophils 4.5 thou/uL (1.40-6.50); %Basophils 0.2 % (0.0-1.0); %Eosinophils 4.3 % (0.0-10.0); %Lymphocytes 16.9 % (21.0-51.0); %Monocytes 14.6 % (0.0-10.0); %Neutrophils 63.9 % (42.0-75.0); Hemoglobin 10.1 g/dL (14.0-18.0); Mean Corpuscular HGB CONC 32.8 g/dL (32.0-36.0); Mean Corpuscular Hemoglobin 29.5 pg (27.0-31.0); Mean Corpuscular Volume 89.9 fl (78.0-98.0); Platelet Count 298 10x3/uL (130-400); RBC Distribution Width 14.4 % (11.5-14.5); Red Blood Cell (RBC) Count 3.43 mill/uL (4.70-6.10); White Blood Cell (WBC) Count 7.1 10x3/uL (4.8-10.8)
[2022-04-23 06:24] LABS: Anion Gap 13 mmol/L (10-20); BUN (Urea Nitrogen) 6 mg/dL (8.9-20.6); Calc. Creatinine Clearance 160 mL/min (70-130); Calcium 8.7 mg/dL (7.8-10.44); Carbon Dioxide 23 mmol/L (22-29); Chloride 103 mmol/L (98-107); Estimated GFR 133; Glucose 83 mg/dL (70-105); Magnesium 1.9 mg/dL (1.6-2.6); Phosphorus 2.9 mg/dL (2.3-4.7); Potassium 3.8 mmol/L (3.5-5.1); Sodium 135 mmol/L (136-145)
[2022-04-23] MEDS: VANCOMYCIN 1.25 GM/250 ML BAG 1.25 GM in Premix Bag 1 BAG IVPB SCH (10:16)
[2022-04-23] MEDS: Saccharomyces boulardii 250 MG CAP PO SCH (10:16)
[2022-04-23] MEDS: cefTRIAXone\\ROCEPHIN 2 GM in Sodium Chloride 0.9% 100 ML IVPB SCH (17:18)
[2022-04-23 20:31] LABS: Vancomycin, Trough 9.9 ug/mL
[2022-04-23] MEDS: metroNIDAZOLE 500 MG in Premix Bag 1 BAG IVPB SCH (20:56)
[2022-04-23] MEDS: traMADol HCl 50 MG TAB PO PRN (21:01)
[2022-04-24] MEDS: metroNIDAZOLE 500 MG in Premix Bag 1 BAG IVPB SCH ×3 (05:25→21:27)
[2022-04-24 06:16] LABS: #Eosinphils 0.3 thou/uL (0.0-0.7); #Lymphocytes 1.3 thou/uL (1.20-3.40); #Monocytes 0.6 thou/uL (0.11-0.59); %Basophils 0.2 % (0.0-1.0); %Eosinophils 5.5 % (0.0-10.0); %Lymphocytes 25.6 % (21.0-51.0); %Monocytes 11.5 % (0.0-10.0); %Neutrophils 57.2 % (42.0-75.0); Hemoglobin 10.6 g/dL (14.0-18.0); Mean Corpuscular HGB CONC 32.9 g/dL (32.0-36.0); Mean Corpuscular Hemoglobin 29.4 pg (27.0-31.0); Mean Corpuscular Volume 89.4 fl (78.0-98.0); Platelet Count 310 10x3/uL (130-400); RBC Distribution Width 14.5 % (11.5-14.5); Red Blood Cell (RBC) Count 3.61 mill/uL (4.70-6.10); White Blood Cell (WBC) Count 5.2 10x3/uL (4.8-10.8)
[2022-04-24 06:39] LABS: Anion Gap 13 mmol/L (10-20); BUN (Urea Nitrogen) 5 mg/dL (8.9-20.6); Calc. Creatinine Clearance 135 mL/min (70-130); Calcium 9.2 mg/dL (7.8-10.44); Carbon Dioxide 27 mmol/L (22-29); Chloride 105 mmol/L (98-107); Estimated GFR 126; Glucose 85 mg/dL (70-105); Magnesium 1.8 mg/dL (1.6-2.6); Potassium 3.7 mmol/L (3.5-5.1); Sodium 141 mmol/L (136-145)
[2022-04-24 06:46] LABS: Phosphorus 3.6 mg/dL (2.3-4.7)
[2022-04-24] MEDS: Saccharomyces boulardii 250 MG CAP PO SCH (09:50)
[2022-04-24] MEDS: traMADol HCl 50 MG TAB PO PRN ×2 (14:23→21:30)
[2022-04-24] MEDS: cefTRIAXone\\ROCEPHIN 2 GM in Sodium Chloride 0.9% 100 ML IVPB SCH (17:25)
[2022-04-25] MEDS: metroNIDAZOLE 500 MG in Premix Bag 1 BAG IVPB SCH ×2 (05:02→14:46)
[2022-04-25] MEDS: traMADol HCl 50 MG TAB PO PRN (05:06)
[2022-04-25] MEDS: Saccharomyces boulardii 250 MG CAP PO SCH (08:29)
[2022-04-25 09:25] LABS: #Eosinphils 0.3 thou/uL (0.0-0.7); #Lymphocytes 1.1 thou/uL (1.20-3.40); #Monocytes 0.6 thou/uL (0.11-0.59); #Neutrophils 2.9 thou/uL (1.40-6.50); %Basophils 0.4 % (0.0-1.0); %Eosinophils 5.5 % (0.0-10.0); %Lymphocytes 22.5 % (21.0-51.0); %Monocytes 12.5 % (0.0-10.0); %Neutrophils 59.1 % (42.0-75.0); Hemoglobin 10.4 g/dL (14.0-18.0); Mean Corpuscular HGB CONC 32.3 g/dL (32.0-36.0); Mean Corpuscular Hemoglobin 28.7 pg (27.0-31.0); Mean Corpuscular Volume 88.9 fl (78.0-98.0); Platelet Count 336 10x3/uL (130-400); RBC Distribution Width 14.5 % (11.5-14.5); Red Blood Cell (RBC) Count 3.61 mill/uL (4.70-6.10)
[2022-04-25] MEDS ORDERED: metroNIDAZOLE 500 MG TAB PO SCH (15:00)
[2022-04-25 16:41] VITALS: BP 101/58; TEMP 98.1
[2022-04-25] MEDS ORDERED: Ciprofloxacin 500 MG TAB PO SCH (20:00)
[2022-04-26] MEDS ORDERED: Saccharomyces boulardii 250 MG CAP PO SCH (09:00)
== END 2022-04-25 17:07 | disposition home or self-care (01) | DRG 698 ==
LOC: ERS 14:38 → SURG A 17:54
PROVIDERS: ADMIT Surgery; ATTEND Surgery
PROC: 0T25X0Z Change Drainage Device in Kidney, External Approach (ICD-10-PCS; principal; 2022-04-21)
PROC: 0W9J3ZZ Drainage of Pelvic Cavity, Percutaneous Approach (ICD-10-PCS; 2022-04-21)
DX: N99.521 Infection of incontinent external stoma of urinary tract (principal); K65.1 Peritoneal abscess; L02.31 Cutaneous abscess of buttock; N12 Tubulo-interstitial nephritis, not specified as acute or chronic; N36.8 Other specified disorders of urethra; Z20.822 Contact with and (suspected) exposure to COVID-19; B96.20 Unspecified Escherichia coli [E. coli] as the cause of diseases classified elsewhere; Y84.6 Urinary catheterization as the cause of abnormal reaction of the patient, or of later complication, without mention of misadventure at the time of the procedure; Z79.899 Other long term (current) drug therapy
CPT/HCPCS: 36415; 74177; 75984; 77002; 80048; 80053; 80202; 81003; 81015; 83605; 83735; 84100; 85025; 85060; 85610; 85730; 87040; 87070; 87077; 87086; 87186; 87205; 89051; 96365; 96375; C1729; J0696; J2185; J2250; J3010; J3370; J3475; J3490; J7050; Q9967; U0002

== ENCOUNTER 2022-05-31 09:19 | Emergency (ER) | payer BC, OTHER, SELFPAY ==
[2022-05-31] MEDS ORDERED: Iopamidol-370 76% 500 ML 1 ML ONE (09:22)
[2022-05-31] MEDS ORDERED: Iopamidol 300 61% 50 ML VIAL FS ONE (09:49)
[2022-05-31 10:28] LABS: #Eosinphils 0.2 thou/uL (0.0-0.7); #Lymphocytes 1.2 thou/uL (1.20-3.40); #Monocytes 0.9 thou/uL (0.11-0.59); #Neutrophils 4.5 thou/uL (1.40-6.50); %Basophils 0.2 % (0.0-1.0); %Eosinophils 2.4 % (0.0-10.0); %Lymphocytes 17.5 % (21.0-51.0); %Monocytes 13.5 % (0.0-10.0); %Neutrophils 66.4 % (42.0-75.0); Hemoglobin 14.9 g/dL (14.0-18.0); Mean Corpuscular HGB CONC 33.5 g/dL (32.0-36.0); Mean Corpuscular Hemoglobin 28.6 pg (27.0-31.0); Mean Corpuscular Volume 85.3 fl (78.0-98.0); Mean Platelet Volume 7.5 fL (7.4-10.4); Platelet Count 227 10x3/uL (130-400); RBC Distribution Width 15.3 % (11.5-14.5); White Blood Cell (WBC) Count 6.8 10x3/uL (4.8-10.8)
[2022-05-31] MEDS ORDERED: HYDROcodone/Acetaminophen 10/325 mg Tablet ONE (10:33)
[2022-05-31 10:55] LABS: ALT (SGPT) 15 U/L (8-55); AST (SGOT) 16 U/L (5-34); Albumin 4.1 g/dL (3.5-5.0); Alkaline Phosphatase 82 U/L (40-110); Anion Gap 13 mmol/L (10-20); BUN (Urea Nitrogen) 8 mg/dL (8.9-20.6); Bilirubin, Total 1.5 mg/dL (0.2-1.2); Calc. Creatinine Clearance 0 mL/min (70-130); Calcium 9.9 mg/dL (7.8-10.44); Carbon Dioxide 27 mmol/L (22-29); Chloride 102 mmol/L (98-107); Estimated GFR 127; Globulin 3.3 g/dL (2.4-3.5); Glucose 87 mg/dL (70-105); Potassium 3.9 mmol/L (3.5-5.1); Protein, Total 7.4 g/dL (6.0-8.3); Sodium 138 mmol/L (136-145)
[2022-05-31] MEDS ORDERED: Lidocaine 1% PF 5 ML VIAL ONE (13:06)
[2022-05-31] MEDS ORDERED: Sodium Bicarbonate 2.5 MEQ/5 ML VIAL ONE (13:06)
== END 2022-05-31 14:02 | disposition home or self-care (01) ==
LOC: ERS 09:19
DX: Z46.6 Encounter for fitting and adjustment of urinary device (principal)
CPT/HCPCS: 36415; 50431; 50433; 74177; 80053; 85025; C1729; Q9967

== ENCOUNTER 2022-12-14 22:27 | Emergency (ER) | payer BC, OTHER ==
[2022-12-14] MEDS ORDERED: Ondansetron PF 4 MG/2 ML Vial ONE (22:47)
[2022-12-15 00:31] LABS: ALT (SGPT) 15 U/L (8-55); AST (SGOT) 13 U/L (5-34); Alkaline Phosphatase 69 U/L (40-110); Anion Gap 11 mmol/L (10-20); BUN (Urea Nitrogen) 8 mg/dL (8.9-20.6); Bilirubin, Total 0.6 mg/dL (0.2-1.2); Calc. Creatinine Clearance 0 mL/min (70-130); Calcium 9.4 mg/dL (7.8-10.44); Carbon Dioxide 22 mmol/L (22-29); Chloride 109 mmol/L (98-107); Estimated GFR 123; Globulin 3.6 g/dL (2.4-3.5); Glucose 96 mg/dL (70-105); Potassium 3.9 mmol/L (3.5-5.1); Protein, Total 7.6 g/dL (6.0-8.3); Sodium 138 mmol/L (136-145)
[2022-12-15 01:18] LABS: #Eosinphils 0.1 thou/uL (0.0-0.7); #Monocytes 0.6 thou/uL (0.11-0.59); #Neutrophils 6.2 thou/uL (1.40-6.50); %Basophils 0.2 % (0.0-1.0); %Eosinophils 1.5 % (0.0-10.0); %Monocytes 7.7 % (0.0-10.0); %Neutrophils 77.2 % (42.0-75.0); Hematocrit 45.3 % (42.0-52.0); Hemoglobin 15.6 g/dL (14.0-18.0); Mean Corpuscular HGB CONC 34.4 g/dL (32.0-36.0); Mean Corpuscular Volume 84.2 fl (78.0-98.0); Mean Platelet Volume 9.2 fL (7.4-10.4); Platelet Count 228 10x3/uL (130-400); RBC Distribution Width 13.8 % (11.5-14.5); Red Blood Cell (RBC) Count 5.38 mill/uL (4.70-6.10)
[2022-12-15 01:21] LABS: Bacteria/HPF 3+ HPF (None Seen); Bilirubin Negative (Negative); Blood, Urine 1+ (Negative); CAUTI Indications for Culture Pelvic or flank pain; Clarity Turbid (Clear); Glucose, Urine (Dipstick) Normal (Negative); Ketone, Urine Negative (Negative); Leukocyte 500 Leu/uL (Negative); Nitrite 2+ (Negative); Protein, Urine (Dipstick) 30 mg/dL (Neg-Trace); Squamous Epithelial 0-3 HPF (0-3); Urobilinogen Normal mg/dL (Less than 2); WBC/HPF Greater than 50 HPF (0-3); pH, Urine 5.5 (5.0-9.0)
[2022-12-15 01:22] LABS: Urine Culture Reflex Yes Yes
== END 2022-12-15 01:40 | disposition home or self-care (01) ==
LOC: ERS 22:27
DX: N39.0 Urinary tract infection, site not specified (principal); K94.03 Colostomy malfunction
CPT/HCPCS: 36415; 80053; 81001; 85025; 87077; 87086; 87186; 96374; J2405

== ENCOUNTER 2023-10-03 20:17 | Emergency (ER) | payer BC, OTHER, SELFPAY ==
[2023-10-03 21:33] LABS: #Basophils Less than 0.03 10x3/uL (0.0-0.2); %Basophils 0.1 % (0.0-1.0); %Eosinophils 0.8 % (0.0-10.0); %Lymphocytes 12.3 % (21.0-51.0); %Monocytes 16.9 % (0.0-10.0); %Neutrophils 69.5 % (42.0-75.0); Hematocrit 37.1 % (42.0-52.0); Mean Corpuscular Volume 85.5 fL (78.0-98.0); Mean Platelet Volume 9.4 fL (7.4-10.4); Platelet Count 243 10x3/uL (130-400); RBC Distribution Width 12.4 % (11.5-14.5); Red Blood Cell (RBC) Count 4.34 mill/uL (4.70-6.10)
[2023-10-03 21:52] LABS: Bacteria/HPF None Seen HPF (None Seen); Bilirubin Negative (Negative); Blood, Urine Negative (Negative); CAUTI Indications for Culture Acute Hematuria; Clarity Clear (Clear); Glucose, Urine (Dipstick) Normal (Negative); Ketone, Urine Negative (Negative); Leukocyte Negative Leu/uL (Negative); Nitrite Negative (Negative); Protein, Urine (Dipstick) Negative (Neg-Trace); RBC/HPF 0-3 HPF (0-3); Specific Gravity, Urine 1.018 (1.002-1.036); Squamous Epithelial None Seen HPF (0-3); Urobilinogen 12 mg/dL (Less than 2); WBC/HPF 0-3 HPF (0-3)
[2023-10-03 21:53] LABS: Urine Culture Reflex No No
[2023-10-03 21:57] LABS: ALT (SGPT) 45 U/L (8-55); AST (SGOT) 27 U/L (5-34); Alkaline Phosphatase 97 U/L (40-110); Anion Gap 13 mmol/L (10-20); BUN (Urea Nitrogen) 9 mg/dL (8.9-20.6); Calc. Creatinine Clearance 0 mL/min (70-130); Carbon Dioxide 26 mmol/L (22-29); Chloride 100 mmol/L (98-107); Estimated GFR 109; Globulin 4.4 g/dL (2.4-3.5); Glucose 74 mg/dL (70-105); Potassium 3.6 mmol/L (3.5-5.1); Protein, Total 7.4 g/dL (6.0-8.3); Sodium 135 mmol/L (136-145)
[2023-10-03] MEDS ORDERED: Ondansetron PF 4 MG/2 ML Vial ONE (23:49)
[2023-10-03] MEDS ORDERED: Ketorolac Tromethamine 30 MG (1 mL) VIAL ONE (23:49)
== END 2023-10-04 | disposition home or self-care (01) ==
LOC: ERS 20:17
DX: N99.522 Malfunction of incontinent external stoma of urinary tract (principal)
CPT/HCPCS: 36415; 80053; 81001; 83605; 85025; 87040; 87086; 96361; 96374; 96375; J1885; J2405